=== PATIENT | female | born 1955 | race Caucasian/White ===

== ENCOUNTER 2017-04-06 03:44 | Emergency (ER) | payer BC ==
--- NOTE | 2017-04-06 04:06 | EDM.PDOC ---
ED HPI GENERAL MEDICAL PROBLEM - General Chief Complaint: ENT Problem Stated Complaint: POSSIBLE LEFT EAR INFECTION Time Seen by Provider: 04/06/17 04:02 - History of Present Illness INITIAL COMMENTS - FREE TEXT/NARRATIVE: HISTORY AND PHYSICAL: History of present illness: Patient 7-year-old female presents with concern of left ear pain has been 1 day she was recently started on Z-Yosvany she is also on Bactrim 3 times weekly and this all relates to bone marrow transplant and prophylaxis. She denies fever chills nausea vomiting or other complaints Review of systems: As per history of present illness and below otherwise all systems reviewed and negative. Past medical history: As per history of present illness and as reviewed below otherwise noncontributory. Surgical history: As per history of present illness and as reviewed below otherwise noncontributory. Social history: No reported history of drug or alcohol abuse. Family history: As per history of present illness and as reviewed below otherwise noncontributory. Physical exam: HEENT: Atraumatic, normocephalic, pupils reactive, negative for conjunctival pallor or scleral icterus, mucous membranes moist, throat clear, neck supple, nontender, trachea midline. Left TM is mildly injected with an absent light reflex Lungs: Clear to auscultation, breath sounds equal bilaterally, chest nontender. Heart: S1S2, regular, negative for clicks, rubs, or JVD. Abdomen: Soft, nondistended, nontender. Negative for masses or hepatosplenomegaly. Negative for costovertebral tenderness. Pelvis: Stable nontender. Genitourinary: Deferred. Rectal: Deferred. Extremities: Atraumatic, negative for cords or calf pain. Neurovascular unremarkable. Neuro: Awake, alert, oriented. Cranial nerves II through XII unremarkable. Cerebellum unremarkable. Motor and sensory unremarkable throughout. Exam nonfocal. Diagnostics: None Therapeutics: None Impression: #1 left otalgia/left otitis media Definitive disposition and diagnosis as appropriate pending reevaluation and review of above. left ear Pain Score (Numeric/FACES): 8 - Related Data Allergies Allergy/AdvReac Type Severity Reaction Status Date / Time Penicillins Allergy Hives Verified 04/06/17 03:54 Home Meds: Home Meds DULoxetine [Cymbalta] 60 mg PO DAILY 02/24/16 [History] Ergocalciferol (Vitamin D2) [Vitamin D2] 50,000 units PO WEEKLY 02/24/16 [ History] Folic Acid 1 mg PO DAILY 02/24/16 [History] LORazepam [Ativan] 0.5 tab PO Q6HR 02/24/16 [History] Levothyroxine Sodium [Levo-T] 25 mcg PO DAILY 02/24/16 [History] Lisinopril 20 mg PO DAILY 02/24/16 [History] Metoprolol Tartrate 12.5 mg PO BID 02/24/16 [History] Milnacipran HCl [Savella] 50 mg PO DAILY 02/24/16 [History] Omeprazole 20 mg PO DAILY 02/24/16 [History] Ondansetron [Zofran ODT] 4 mg PO Q6H 02/24/16 [History] Prochlorperazine [Compazine] 10 mg PO Q6HR PRN 02/24/16 [History] Tacrolimus [Prograf] 1 mg PO ASDIRECTED 02/24/16 [History] Past Medical History Other HEENT History: using eye glasses Cardiovascular History: Reports: High Cholesterol, Hypertension Respiratory History: Reports: None Gastrointestinal History: Reports: None Other Gastrointestinal History: gallbladder removed in 1999 Genitourinary History: Reports: None ANIMAL KILLER History: Reports: Other OB/BYN History: hysterectomy Musculoskeletal History: Reports: None Neurological History: Reports: None Psychiatric History: Reports: None Endocrine/Metabolic History: Reports: Hypothyroidism Hematologic History: Reports: None Immunologic History: Reports: None Oncologic (Cancer) History: Reports: Leukemia Dermatologic History: Reports: None - Infectious Disease History Infectious Disease History: Reports: Chicken Pox, Measles, Mumps - Past Surgical History Head Surgeries/Procedures: Reports: None GI Surgical History: Reports: Cholecystectomy Other Oncologic Surgeries/Procedures: 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 ED EXAM, GENERAL - Physical Exam Exam: See Below (See dictation) Course - Vital Signs Text/Narrative:: Patient declined any analgesia or a further antibiotics in light of her current situation she'll contact her private doctor I discussed with her that the Z-Yosvany is reasonable empiric therapy at this point pending discussion with her doctor Last Recorded V/S: Last Vital Signs Temp 36.2 C 04/06/17 03:54 Pulse 102 H 04/06/17 03:54 Resp 18 04/06/17 03:54 BP 141/103 H 04/06/17 03:54 Pulse Ox 98 04/06/17 03:54 Departure - Departure Time of Disposition: 04:05 Disposition: Home, Self-Care 01 Condition: Good Clinical Impression: Otitis media - Discharge Information Referrals: Gino Desir MD [Primary Care Provider] - Additional Instructions: The following information is given to patients seen in the emergency department who are being discharged to home. This information is to outline your options for follow-up care. We provide all patients seen in our emergency department with a follow-up referral. The need for follow-up, as well as the timing and circumstances, are variable depending upon the specifics of your emergency department visit. If you don't have a primary care physician on staff, we will provide you with a referral. We always advise you to contact your personal physician following an emergency department visit to inform them of the circumstance of the visit and for follow-up with them and/or the need for any referrals to a consulting specialist. The emergency department will also refer you to a specialist when appropriate. This referral assures that you have the opportunity for followup care with a specialist. All of these measure are taken in an effort to provide you with optimal care, which includes your followup. Under all circumstances we always encourage you to contact your private physician who remains a resource for coordinating your care. When calling for followup care, please make the office aware that this follow-up is from your recent emergency room visit. If for any reason you are refused follow-up, please contact the [facility] emergency department at and asked to speak to the emergency department charge nurse Follow-up primary medical doctor 1-2 days return as needed as discussed continue current medications as prescribed[]
[2017-04-06 04:19] VITALS: BP 122/93
== END 2017-04-06 04:15 | disposition home or self-care (01) ==
LOC: MW.ED 03:44
DX: H66.92 Otitis media, unspecified, left ear (principal); I10 Essential (primary) hypertension; Z88.0 Allergy status to penicillin; Z79.899 Other long term (current) drug therapy
CPT/HCPCS: 99282

== ENCOUNTER 2017-12-31 08:06 | Day surgery (SDC) | payer BC ==
[~2017-12-31 08:06] MED LIST: Ciprofloxacin in D5W 400 MG in Premix Bag 1 BAG IV SCH; Lactated Ringers 1,000 ML IV SCH; Sodium Chloride 0.9% 10 ML Syringe FLUSH PRN; Sodium Chloride 0.9% 2.5 ML Syringe FLUSH PRN
[2017-12-31] MEDS ORDERED: Propofol 200 MG/20 ML SDV ONE (08:40)
[2017-12-31] MEDS ORDERED: Lidocaine 2% 5 ML SDV ONE (08:40)
[2017-12-31] MEDS ORDERED: Midazolam 1 MG/ML 2 ML SDV ONE (08:40)
[2017-12-31] MEDS ORDERED: fentaNYL 250 MCG/5 ML SDV ONE (08:40)
[2017-12-31] MEDS ORDERED: Ondansetron 4 MG/2 ML SDV ONE (08:40)
[2017-12-31] MEDS ORDERED: Desflurane 240 ML Bottle ONE (09:29)
[2017-12-31] MEDS ORDERED: Iopamidol 408 MG/ML 50 ML SDV ONE (09:46)
--- NOTE | 2017-12-31 09:48 | PCM.PREANE ---
Preanesthetic Assessment - Anesthesia/Transfusion/Family Hx Anesthesia History: Prior Anesthesia Without Reaction Transfusion History: Prior Transfusion Without Reaction Intubation History: Unknown - Review of Systems General: No Symptoms Cardiovascular: Other (HTN) Gastrointestinal: Other (GERD) Neurological: No Symptoms Other: Reports: Thyroid Problems (hypothyroid) - Physical Assessment NPO Status Date: 12/30/17 NPO Status Time: 22:00 O2 Sat by Pulse Oximetry: 96 Respiratory Rate: 16 Vital Signs: Last Vital Signs Temp 97.7 F 12/31/17 08:58 Pulse 71 12/31/17 08:58 Resp 16 12/31/17 08:58 BP 116/77 12/31/17 08:58 Pulse Ox 96 12/31/17 08:58 Height: 5 ft 9 in Weight: 178 lb Airway Class: Mallampati = 1 Dentition: Reports: Normal Dentition Thyro-Mental Finger Breadths: 3 Mouth Opening Finger Breadths: 3 ROM/Head Extension: Full Lungs: Clear to Auscultation, Normal Respiratory Effort Cardiovascular: Regular Rate, Regular Rhythm, No Murmurs - Allergies Allergies/Adverse Reactions: Allergies Allergy/AdvReac Type Severity Reaction Status Date / Time levofloxacin [From Levaquin] Allergy Cannot Verified 12/30/17 15:09 Remember Penicillins Allergy Hives Verified 12/30/17 15:08 vancomycin Allergy Hives Verified 12/31/17 09:10 - Blood Blood Available: No Product(s) Available: None - Anesthesia Plan Pre-Op Medication Ordered: Anxiolytic (ativan) - Acknowledgements Anesthesia Type Planned: General Anesthesia (LMA) Pt an Appropriate Candidate for the Planned Anesthesia: Yes Alternatives and Risks of Anesthesia Discussed w Pt/Guardian: Yes Pt/Guardian Understands and Agrees with Anesthesia Plan: Yes PreAnesthesia Questionnaire HEENT History: Reports: Other (See Below) Other HEENT History: using eye glasses Cardiovascular History: Reports: High Cholesterol, Hypertension Other Cardiovascular History: HTN, high cholesterol in the past Respiratory History: Reports: None Gastrointestinal History: Reports: Colon Polyp, Diverticulosis Genitourinary History: Reports: UTI, Recurrent PHYSICAL THERAPY RESIDENT History: Reports: Other OB/BYN History: hysterectomy Musculoskeletal History: Reports: Fibromyalgia Other Musculoskeletal History: fibromyalgia prior to stem cell transplant Neurological History: Reports: None Psychiatric History: Reports: Anxiety, Depression Endocrine/Metabolic History: Reports: Hypothyroidism Hematologic History: Reports: Blood Transfusion(s), Other (See Below) Other Hematologic History: 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 Immunologic History: Reports: None Oncologic (Cancer) History: Reports: Leukemia Other Oncologic History: hx stem cell transplant Jun, 2014 Dermatologic History: Reports: None - Infectious Disease History Infectious Disease History: Reports: Chicken Pox, Measles, Mumps - Past Surgical History Head Surgeries/Procedures: Reports: None GI Surgical History: Reports: Cholecystectomy, Colonoscopy Female Surgical History: Reports: Hysterectomy - SUBSTANCE USE Smoking Status *Q: Former Smoker Recreational Drug Use History: No - HOME MEDS Home Medications: Home Meds DULoxetine [Cymbalta] 60 mg PO DAILY 02/24/16 [History] LORazepam [Ativan] 0.5 tab PO Q6HR 02/24/16 [History] Levothyroxine Sodium [Levo-T] 25 mcg PO DAILY 02/24/16 [History] Milnacipran HCl [Savella] 50 mg PO DAILY 02/24/16 [History] Acyclovir 800 mg PO BID 12/30/17 [History] - CURRENT (IN HOUSE) MEDS Current Meds: Current Medications Ciprofloxacin/Dextrose 400 mg/ (Premix) 200 mls @ 200 mls/hr IV ONCALL [facility] Last Admin: 12/31/17 08:35 Dose: 200 mls/hr Lactated Ringer's (Ringers, Lactated) 1,000 mls @ 100 mls/hr IV ASDIRECTED [facility] Last Admin: 12/31/17 08:30 Dose: 100 mls/hr Sodium Chloride (Saline Flush) 10 ml FLUSH ASDIRECTED PRN PRN Reason: Keep Vein Open Sodium Chloride (Saline Flush) 2.5 ml FLUSH ASDIRECTED PRN PRN Reason: Keep Vein Open Discontinued Medications Desflurane (Suprane) Confirm Administered Dose 240 ml .ROUTE .STK-MED ONE Stop: 12/31/17 09:30 Fentanyl (Sublimaze) Confirm Administered Dose 250 mcg .ROUTE .STK-MED ONE Stop: 12/31/17 08:41 Lidocaine (Xylocaine-Mpf 2%) Confirm Administered Dose 5 ml .ROUTE .STK-MED ONE Stop: 12/31/17 08:41 Midazolam HCl (Versed 1 Mg/Ml) Confirm Administered Dose 2 mg .ROUTE .STK-MED ONE Stop: 12/31/17 08:41 Ondansetron HCl (Zofran) Confirm Administered Dose 4 mg .ROUTE .STK-MED ONE Stop: 12/31/17 08:41 Propofol (Diprivan 20 Ml) Confirm Administered Dose 200 mg .ROUTE .STK-MED ONE Stop: 12/31/17 08:41
--- NOTE | 2017-12-31 11:01 | PCM.POSTAN ---
POST ANESTHESIA ASSESSMENT - MENTAL STATUS Mental Status: Alert, Oriented - RESPIRATORY Respiratory Status: Respiratory Rate WNL, Airway Patent, O2 Saturation Stable - CARDIOVASCULAR CV Status: Pulse Rate WNL, Blood Pressure Stable - GASTROINTESTINAL GI Status: No Symptoms - POST OP HYDRATION Hydration Status: Adequate & Stable
--- NOTE | 2017-12-31 12:20 | OR ---
SURGEON: Kelby Chavarria M.D. DATE OF PROCEDURE: 12/31/2017 PREOPERATIVE DIAGNOSIS: Urethral stricture. POSTOPERATIVE DIAGNOSIS: Urethral stricture. OPERATION: Urethral dilatation and cystoscopy. FINDINGS: Normal cystoscopy. DESCRIPTION OF THE PROCEDURE: The patient was given general anesthesia, she was placed in dorsal lithotomy position, prepped and draped in sterile drapes. The rigid ureteroscope was advanced in the urethra without difficulty all the way into the bladder. A guidewire was then advanced through that. The rigid ureteroscope was removed and the UroMax II balloon dilator was advanced over the guidewire in the urethra, was inflated to approximately 15-Greenlandic. With that done, that was then taken out, so was the guidewire. Urethroscopy was done. The urethra was dilated properly. Further dilatation was done using 16, 18, 20, 22, and 24- Green[place]ic straight sounds. Cystoscopy was done and that was entirely normal. With that done, the procedure was terminated. The patient was sent to recovery room in good condition. JULIETA / ELIZA /[id number]
--- NOTE | 2017-12-31 12:59 | PCM48HPAN ---
Post Anesthesia Note - EVALUATION WITHIN 48HRS OF ANESTHETIC Vital Signs in Normal Range: Yes Patient Participated in Evaluation: Yes Respiratory Function Stable: Yes Airway Patent: Yes Cardiovascular Function Stable: Yes Hydration Status Stable: Yes Pain Control Satisfactory: Yes Nausea and Vomiting Control Satisfactory: Yes Mental Status Recovered: Yes Resp Rate: 10
[2017-12-31 13:17] VITALS: BP 116/78
== END 2017-12-31 12:38 | disposition home or self-care (01) ==
LOC: MW.SDS 08:06
PROVIDERS: ATTEND Urology
DX: N35.9 Urethral stricture, unspecified (principal); K64.9 Unspecified hemorrhoids; E78.00 Pure hypercholesterolemia, unspecified; Z88.0 Allergy status to penicillin; Z79.899 Other long term (current) drug therapy; Z87.891 Personal history of nicotine dependence
CPT/HCPCS: 52281; J0744; J2250; J2405; J2704; J3010; J7120; Q9966

== ENCOUNTER 2018-01-19 13:36 | Observation (INO) | payer BC ==
[2018-01-19] MEDS ORDERED: Albuterol/Ipratropium 3.0-0.5 MG/3 ML Neb Soln NEB ONE (13:47)
[2018-01-19] MEDS ORDERED: methylPREDNISolone Sodium Succinate 125 MG/2 ML SDV IVPUSH ONE (13:47)
--- NOTE | 2018-01-19 13:47 | EDM.PDOC ---
ED HPI GENERAL MEDICAL PROBLEM - General Stated Complaint: SOB Time Seen by Provider: 01/19/18 13:46 Source of Information: Reports: Patient - History of Present Illness INITIAL COMMENTS - FREE TEXT/NARRATIVE: HISTORY AND PHYSICAL: History of present illness: []Patient with lymphoma and stem cell transplant presents with cough shortness of breath and night sweats She has been getting generally weak and not taking in fluids over the last week , otherwise no fever vomiting chills no chest pain headache dizziness palpitation no bowel or urine symptoms Review of systems: As per history of present illness and below otherwise all systems reviewed and negative. Past medical history: As per history of present illness and as reviewed below otherwise noncontributory. Surgical history: As per history of present illness and as reviewed below otherwise noncontributory. Social history: No reported history of drug or alcohol abuse. Family history: As per history of present illness and as reviewed below otherwise noncontributory. Physical exam: HEENT: Atraumatic, normocephalic, pupils reactive, negative for conjunctival pallor or scleral icterus, mucous membranes moist, throat clear, neck supple, nontender, trachea midline. Lungs: Clear to auscultation, breath sounds equal bilaterally, chest nontender. Heart: S1S2, regular, negative for clicks, rubs, or JVD. Abdomen: Soft, nondistended, nontender. Negative for masses or hepatosplenomegaly. Negative for costovertebral tenderness. Pelvis: Stable nontender. Genitourinary: Deferred. Rectal: Deferred. Extremities: Atraumatic, negative for cords or calf pain. Neurovascular unremarkable. Neuro: Awake, alert, oriented. Cranial nerves II through XII unremarkable. Cerebellum unremarkable. Motor and sensory unremarkable throughout. Exam nonfocal. Skin mild tenting in the dorsum of hands Diagnostics: [CBC CMP UA troponin EKG Chest 1 view ] Therapeutics: [ normal saline 1 25 mL per hour DuoNeb impression: [ short of breath ] Nonspecific opacities on chest x-ray Dehydration Sinus tachycardia Renal insufficiency Definitive disposition and diagnosis as appropriate pending reevaluation and review of above. - Related Data Allergies Allergy/AdvReac Type Severity Reaction Status Date / Time levofloxacin [From Levaquin] Allergy Cannot Verified 01/19/18 13:54 Remember Penicillins Allergy Hives Verified 01/19/18 13:54 vancomycin Allergy Hives Verified 01/19/18 13:54 Home Meds: Home Meds DULoxetine [Cymbalta] 60 mg PO DAILY 02/24/16 [History] LORazepam [Ativan] 0.5 tab PO Q6HR 02/24/16 [History] Levothyroxine Sodium [Levo-T] 25 mcg PO DAILY 02/24/16 [History] Milnacipran HCl [Savella] 50 mg PO DAILY 02/24/16 [History] Acyclovir 800 mg PO BID 12/30/17 [History] Past Medical History HEENT History: Reports: Other (See Below) Other HEENT History: using eye glasses Cardiovascular History: Reports: High Cholesterol, Hypertension Other Cardiovascular History: HTN, high cholesterol in the past Respiratory History: Reports: None Gastrointestinal History: Reports: Colon Polyp, Diverticulosis Genitourinary History: Reports: UTI, Recurrent UI UX DEVELOPER History: Reports: Other UI UX DEVELOPER History: hysterectomy Musculoskeletal History: Reports: Fibromyalgia Other Musculoskeletal History: fibromyalgia prior to stem cell transplant Neurological History: Reports: None Psychiatric History: Reports: Anxiety, Depression Endocrine/Metabolic History: Reports: Hypothyroidism Hematologic History: Reports: Blood Transfusion(s), Other (See Below) Other Hematologic History: 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 Immunologic History: Reports: None Oncologic (Cancer) History: Reports: Leukemia Other Oncologic History: hx stem cell transplant Jun, 2014 Dermatologic History: Reports: None - Infectious Disease History Infectious Disease History: Reports: Chicken Pox, Measles, Mumps - Past Surgical History Head Surgeries/Procedures: Reports: None GI Surgical History: Reports: Cholecystectomy, Colonoscopy Female Surgical History: Reports: Hysterectomy Social & Family History - Family History Family Medical History: Noncontributory HEENT: Reports: Other (See Below) Other HEENT Family History: cancer - Caffeine Use Caffeine Use: Reports: Coffee ED ROS GENERAL - Review of Systems Review Of Systems: See Below ED EXAM, GENERAL - Physical Exam Exam: See Below Course - Vital Signs Last Recorded V/S: Last Vital Signs Temp 98.6 F 01/19/18 13:46 Pulse 96 01/19/18 13:46 Resp 18 01/19/18 13:46 BP 121/91 H 01/19/18 13:46 Pulse Ox 96 01/19/18 13:46 - Orders/Labs/Meds Orders: Active Orders 24 hr Category Date Time Status EKG Documentation Completion [RC] STAT Care 01/19/18 14:27 Active RT Aerosol Therapy [RC] ASDIRECTED Care 01/19/18 13:47 Active Chest 1V Frontal [CR] Stat Exams 01/19/18 13:44 Taken UA W/MICROSCOPIC [URIN] Stat Lab 01/19/18 13:44 Ordered Sodium Chloride 0.9% [Normal Saline] 1,000 ml Med 01/19/18 14:45 Active IV STAT Sodium Chloride 0.9% [Normal Saline] 500 ml Med 01/19/18 14:00 Active IV STAT Medication Orders Sodium Chloride (Normal Saline) 500 mls @ 999 mls/hr IV STAT HUY Last Admin: 01/19/18 14:02 Dose: 999 mls/hr Sodium Chloride (Normal Saline) 1,000 mls @ 125 mls/hr IV STAT HUY Labs: Laboratory Tests 01/19/18 01/19/18 01/19/18 Range/Units 14:02 14:02 14:02 WBC 10.07 (4.0-11.0) K/uL RBC 3.81 L (4.30-5.90) M/uL Hgb 12.0 (12.0-16.0) g/dL Hct 35.5 L (36.0-46.0) % MCV 93.2 (80.0-98.0) fL MCH 31.5 (27.0-32.0) pg MCHC 33.8 (31.0-37.0) g/dL RDW Std Deviation 41.6 (28.0-62.0) fl RDW Coeff of Jose 13 (11.0-15.0) % Plt Count 213 (150-400) K/uL MPV 10.20 (7.40-12.00) fL Neut % (Auto) 76.9 (48.0-80.0) % Lymph % (Auto) 14.4 L (16.0-40.0) % Gosper % (Auto) 7.0 (0.0-15.0) % Eos % (Auto) 1.5 (0.0-7.0) % Baso % (Auto) 0.2 (0.0-1.5) % Neut # (Auto) 7.8 H (1.4-5.7) K/uL Lymph # (Auto) 1.5 (0.6-2.4) K/uL Gosper # (Auto) 0.7 (0.0-0.8) K/uL Eos # (Auto) 0.2 (0.0-0.7) K/uL Baso # (Auto) 0.0 (0.0-0.1) K/uL Nucleated RBC % 0.0 /100WBC Nucleated RBCs # 0 K/uL Sodium 135 L (136-145) mmol/L Potassium 4.2 (3.5-5.1) mmol/L Chloride 99 (98-107) mmol/L Carbon Dioxide 27.1 (21.0-32.0) mmol/L BUN 19 H (7.0-18.0) mg/dL Creatinine 1.4 H (0.6-1.0) mg/dL Est Cr Clr Drug Dosing 44.10 mL/min Estimated GFR (MDRD) 38.2 ml/min Glucose 139 H (74-106) mg/dL Calcium 9.2 (8.5-10.1) mg/dL Total Bilirubin 0.6 (0.2-1.0) mg/dL AST 29 (15-37) IU/L ALT 50 (14-63) IU/L Alkaline Phosphatase 72 (46-116) U/L Troponin I < 0.050 (0.000-0.056) ng/mL B-Natriuretic Peptide 53 (<100) PG/ML Total Protein 7.8 (6.4-8.2) g/dL Albumin 3.0 L (3.4-5.0) g/dL Globulin 4.8 H (2.0-3.5) g/dL Albumin/Globulin Ratio 0.6 L (1.3-2.8) Meds: Medications Generic Name Dose Route Start Last Admin Trade Name Freq PRN Reason Stop Dose Admin Sodium Chloride 500 mls @ 999 mls/hr 01/19/18 14:00 01/19/18 14:02 Normal Saline IV 999 mls/hr STAT HUY Administration Sodium Chloride 1,000 mls @ 125 mls/hr 01/19/18 14:45 Normal Saline IV STAT HUY Discontinued Medications Generic Name Dose Route Start Last Admin Trade Name Freq PRN Reason Stop Dose Admin Albuterol/Ipratropium 3 ml 01/19/18 13:47 01/19/18 13:57 Duoneb 3.0-0.5 Mg/3 Ml NEB 01/19/18 13:48 3 ml ONETIME ONE Administration Methylprednisolone Sodium Succinate 125 mg 01/19/18 13:47 01/19/18 14:02 Solu-Medrol IVPUSH 01/19/18 13:48 125 mg ONETIME ONE Administration Departure - Departure Time of Disposition: 14:47 Disposition: Refer to Observation Condition: Fair Clinical Impression: Dehydration, Persistent cough, Opacity noted on imaging study - Discharge Information Referrals: Parker Oswald MD [Primary Care Provider] - - My Orders Last 24 Hours: My Active Orders 01/19/18 13:44 Chest 1V Frontal [CR] Stat UA W/MICROSCOPIC [URIN] Stat 01/19/18 13:47 RT Aerosol Therapy [RC] ASDIRECTED 01/19/18 14:00 Sodium Chloride 0.9% [Normal Saline] 500 ml IV STAT 01/19/18 14:27 EKG Documentation Completion [RC] STAT 01/19/18 14:45 Sodium Chloride 0.9% [Normal Saline] 1,000 ml IV STAT - Assessment/Plan Last 24 Hours: My Active Orders 01/19/18 13:44 Chest 1V Frontal [CR] Stat UA W/MICROSCOPIC [URIN] Stat 01/19/18 13:47 RT Aerosol Therapy [RC] ASDIRECTED 01/19/18 14:00 Sodium Chloride 0.9% [Normal Saline] 500 ml IV STAT 01/19/18 14:27 EKG Documentation Completion [RC] STAT 01/19/18 14:45 Sodium Chloride 0.9% [Normal Saline] 1,000 ml IV STAT
[2018-01-19] MEDS ORDERED: Sodium Chloride 0.9% 500 ML IV SCH (14:00)
[2018-01-19 14:29] LABS: CHLORIDE,CL 99 mmol/L (98-107); SODIUM,NA 135 mmol/L (136-145)
[2018-01-19] MEDS: Sodium Chloride 0.9% 1,000 ML IV SCH ×2 (14:55→22:51)
[2018-01-19] MEDS ORDERED: Albuterol/Ipratropium 3.0-0.5 MG/3 ML Neb Soln NEB PRN (15:36)
[2018-01-19] MEDS ORDERED: Morphine 2 MG/ML Syringe IVPUSH PRN (15:36)
[2018-01-19] MEDS ORDERED: Ondansetron 4 MG/2 ML SDV IVPUSH PRN (15:36)
[2018-01-19] MEDS ORDERED: Acetaminophen 325 MG Tab PO PRN (15:36)
[2018-01-19] MEDS ORDERED: Enoxaparin 40 MG/0.4 ML Syringe SUBCUT SCH (15:45)
[2018-01-19] MEDS ORDERED: cefTRIAXone 1 GM in Sodium Chloride 0.9% 50 ML IV SCH (16:15)
--- NOTE | 2018-01-19 16:38 | PCM.HP ---
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 Patient was admitted secondary to what was initially stated that shortness of breath however the patient states that she is not actually short of breath but states that whenever she tries to take a deep breath in it results in her having a cough and as such she has to take very short breaths. The patient also has a jerky movement of her upper torso when she takes a deep breath it just prior to the cough starting. A chest x-ray done showed a nonspecific peripheral reticular nodular opacity in the lungs. Patient also was asked in regards to urinary tract type infection as her UA did look like a possible infection, patient states that she has been having recurrent urinary tract infections over the past couple of months, and she did notice last night that she had a malodorous odor of her urine. Patient also does appear to be dehydrated with a mildly elevated creatinine level at the present moment. - Related Data Allergies/Adverse Reactions: Allergies Allergy/AdvReac Type Severity Reaction Status Date / Time levofloxacin [From Levaquin] Allergy Cannot Verified 01/19/18 13:54 Remember Penicillins Allergy Hives Verified 01/19/18 13:54 vancomycin Allergy Hives Verified 01/19/18 13:54 Home Medications: Home Meds DULoxetine [Cymbalta] 60 mg PO DAILY 02/24/16 [History] LORazepam [Ativan] 0.5 tab PO Q6HR 02/24/16 [History] Levothyroxine Sodium [Levo-T] 25 mcg PO DAILY 02/24/16 [History] Milnacipran HCl [Savella] 50 mg PO DAILY 02/24/16 [History] Acyclovir 800 mg PO BID 12/30/17 [History] Past Medical History HEENT History: Reports: Other (See Below) Other HEENT History: using eye glasses Cardiovascular History: Reports: High Cholesterol, Hypertension Other Cardiovascular History: HTN, high cholesterol in the past Respiratory History: Reports: None Gastrointestinal History: Reports: Colon Polyp, Diverticulosis Genitourinary History: Reports: UTI, Recurrent 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 PHYSICAL History: Reports: Other OB/BYN History: hysterectomy Musculoskeletal History: Reports: Fibromyalgia Other Musculoskeletal History: fibromyalgia prior to stem cell transplant Neurological History: Reports: None Psychiatric History: Reports: Anxiety, Depression Endocrine/Metabolic History: Reports: Hypothyroidism Hematologic History: Reports: Blood Transfusion(s), Other (See Below) Other Hematologic History: 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 Immunologic History: Reports: None Other Immunologic History: Stem cell transplant, currently in remission leukemia Oncologic (Cancer) History: Reports: Leukemia Other Oncologic History: hx stem cell transplant Jun, 2014 Dermatologic History: Reports: None - Infectious Disease History Infectious Disease History: Reports: Chicken Pox, Measles, Mumps - Past Surgical History Head Surgeries/Procedures: Reports: None GI Surgical History: Reports: Cholecystectomy, Colonoscopy Female Surgical History: Reports: Hysterectomy Social & Family History - Family History Family Medical History: Noncontributory HEENT: Reports: Other (See Below) Other HEENT Family History: cancer - Tobacco Use Smoking Status *Q: Former Smoker Years of Tobacco use: 4 Used Tobacco, but Quit: Yes Month/Year Tobacco Last Used: 4 years 1 months - Caffeine Use Caffeine Use: Reports: Coffee - Recreational Drug Use Recreational Drug Use: No H&P Review of Systems - Review of Systems: Review Of Systems: ROS reveals no pertinent complaints other than HPI. Exam - Exam Exam: See Below - Vital Signs Vital Signs: Last Vital Signs Temp 36.6 C 01/19/18 15:36 Pulse 115 H 01/19/18 15:36 Resp 18 01/19/18 15:36 BP 153/91 H 01/19/18 15:36 Pulse Ox 95 01/19/18 15:36 Weight: 78.063 kg - Exam General: Alert, Oriented, Cooperative HEENT: Conjunctiva Clear Neck: Supple, Trachea Midline Lungs: Clear to Auscultation, Normal Respiratory Effort, Other (Patient was asked to take a deep inspiratory breath, she began to cough and had this jerking movement of the upper torso just prior to the cough) Cardiovascular: Regular Rate, Regular Rhythm GI/Abdominal Exam: Normal Bowel Sounds Extremities: Normal Inspection, Normal Range of Motion - Patient Data Lab Results Last 24 hrs: Laboratory Results - last 24 hr 01/19/18 01/19/18 01/19/18 Range/Units 14:02 14:02 14:02 WBC 10.07 (4.0-11.0) K/uL RBC 3.81 L (4.30-5.90) M/uL Hgb 12.0 (12.0-16.0) g/dL Hct 35.5 L (36.0-46.0) % MCV 93.2 (80.0-98.0) fL MCH 31.5 (27.0-32.0) pg MCHC 33.8 (31.0-37.0) g/dL RDW Std Deviation 41.6 (28.0-62.0) fl RDW Coeff of Jose 13 (11.0-15.0) % Plt Count 213 (150-400) K/uL MPV 10.20 (7.40-12.00) fL Neut % (Auto) 76.9 (48.0-80.0) % Lymph % (Auto) 14.4 L (16.0-40.0) % [place] % (Auto) 7.0 (0.0-15.0) % Eos % (Auto) 1.5 (0.0-7.0) % Baso % (Auto) 0.2 (0.0-1.5) % Neut # (Auto) 7.8 H (1.4-5.7) K/uL Lymph # (Auto) 1.5 (0.6-2.4) K/uL [place] # (Auto) 0.7 (0.0-0.8) K/uL Eos # (Auto) 0.2 (0.0-0.7) K/uL Baso # (Auto) 0.0 (0.0-0.1) K/uL Nucleated RBC % 0.0 /100WBC Nucleated RBCs # 0 K/uL Sodium 135 L (136-145) mmol/L Potassium 4.2 (3.5-5.1) mmol/L Chloride 99 (98-107) mmol/L Carbon Dioxide 27.1 (21.0-32.0) mmol/L BUN 19 H (7.0-18.0) mg/dL Creatinine 1.4 H (0.6-1.0) mg/dL Est Cr Clr Drug Dosing 44.10 mL/min Estimated GFR (MDRD) 38.2 ml/min Glucose 139 H (74-106) mg/dL Calcium 9.2 (8.5-10.1) mg/dL Total Bilirubin 0.6 (0.2-1.0) mg/dL AST 29 (15-37) IU/L ALT 50 (14-63) IU/L Alkaline Phosphatase 72 (46-116) U/L Troponin I < 0.050 (0.000-0.056) ng/mL B-Natriuretic Peptide 53 (<100) PG/ML Total Protein 7.8 (6.4-8.2) g/dL Albumin 3.0 L (3.4-5.0) g/dL Globulin 4.8 H (2.0-3.5) g/dL Albumin/Globulin Ratio 0.6 L (1.3-2.8) Urine Color Urine Appearance Urine pH (5.0-8.0) Ur Specific [place] (1.001-1.035) Urine Protein (NEGATIVE) mg/dL Urine Glucose (UA) (NEGATIVE) mg/dL Urine Ketones (NEGATIVE) mg/dL Urine Occult Blood (NEGATIVE) Urine Nitrite (NEGATIVE) Urine Bilirubin (NEGATIVE) Urine Urobilinogen (<2.0) EU/dL Ur Leukocyte Esterase (NEGATIVE) Urine RBC (0-2/HPF) Urine WBC (0-5/HPF) Ur Epithelial Cells (NONE-FEW) Urine Bacteria (NEGATIVE) 01/19/18 Range/Units 15:00 WBC (4.0-11.0) K/uL RBC (4.30-5.90) M/uL Hgb (12.0-16.0) g/dL Hct (36.0-46.0) % MCV (80.0-98.0) fL MCH (27.0-32.0) pg MCHC (31.0-37.0) g/dL RDW Std Deviation (28.0-62.0) fl RDW Coeff of Jose (11.0-15.0) % Plt Count (150-400) K/uL MPV (7.40-12.00) fL Neut % (Auto) (48.0-80.0) % Lymph % (Auto) (16.0-40.0) % [place] % (Auto) (0.0-15.0) % Eos % (Auto) (0.0-7.0) % Baso % (Auto) (0.0-1.5) % Neut # (Auto) (1.4-5.7) K/uL Lymph # (Auto) (0.6-2.4) K/uL [place] # (Auto) (0.0-0.8) K/uL Eos # (Auto) (0.0-0.7) K/uL Baso # (Auto) (0.0-0.1) K/uL Nucleated RBC % /100WBC Nucleated RBCs # K/uL Sodium (136-145) mmol/L Potassium (3.5-5.1) mmol/L Chloride (98-107) mmol/L Carbon Dioxide (21.0-32.0) mmol/L BUN (7.0-18.0) mg/dL Creatinine (0.6-1.0) mg/dL Est Cr Clr Drug Dosing mL/min Estimated GFR (MDRD) ml/min Glucose (74-106) mg/dL Calcium (8.5-10.1) mg/dL Total Bilirubin (0.2-1.0) mg/dL AST (15-37) IU/L ALT (14-63) IU/L Alkaline Phosphatase (46-116) U/L Troponin I (0.000-0.056) ng/mL B-Natriuretic Peptide (<100) PG/ML Total Protein (6.4-8.2) g/dL Albumin (3.4-5.0) g/dL Globulin (2.0-3.5) g/dL Albumin/Globulin Ratio (1.3-2.8) Urine Color YELLOW Urine Appearance CLEAR Urine pH 6.0 (5.0-8.0) Ur Specific [place] <= 1.005 (1.001-1.035) Urine Protein TRACE (NEGATIVE) mg/dL Urine Glucose (UA) NEGATIVE (NEGATIVE) mg/dL Urine Ketones NEGATIVE (NEGATIVE) mg/dL Urine Occult Blood SMALL H (NEGATIVE) Urine Nitrite NEGATIVE (NEGATIVE) Urine Bilirubin NEGATIVE (NEGATIVE) Urine Urobilinogen 0.2 (<2.0) EU/dL Ur Leukocyte Esterase TRACE (NEGATIVE) Urine RBC 0-2 (0-2/HPF) Urine WBC 0-2 (0-5/HPF) Ur Epithelial Cells FEW (NONE-FEW) Urine Bacteria FEW (NEGATIVE) Result Diagrams: 01/19/18 14:02 01/19/18 14:02 - Problem List (1) Dehydration SNOMED Code(s): 88903414 ICD Code: E86.0 - DEHYDRATION Status: Acute Current Visit: Yes (2) Opacity noted on imaging study SNOMED Code(s): 317814298 ICD Code: R93.8 - ABNORMAL FINDINGS ON DIAGNOSTIC IMAGING OF BODY STRUCTURES Status: Acute Current Visit: Yes (3) Persistent cough SNOMED Code(s): 223977574 ICD Code: R05 - COUGH Status: Acute Current Visit: Yes (4) UTI (urinary tract infection) SNOMED Code(s): 30614366 ICD Code: N39.0 - URINARY TRACT INFECTION, SITE NOT SPECIFIED Status: Acute Current Visit: No Problem List Initiated/Reviewed/Updated: Yes Orders Last 24hrs: Active Orders 24 hr Category Date Time Status Admission Status [Patient Status] [ADT] Stat ADT 01/19/18 14:48 Active EKG Documentation Completion [RC] STAT Care 01/19/18 14:27 Active Intake and Output [RC] QSHIFT Care 01/19/18 15:36 Active Oxygen Therapy [RC] PRN Care 01/19/18 15:36 Active Pulse Oximetry [RC] PRN Care 01/19/18 15:36 Active RT Aerosol Therapy [RC] ASDIRECTED Care 01/19/18 13:47 Active RT Aerosol Therapy [RC] ASDIRECTED Care 01/19/18 15:38 Active VTE/DVT Education [RC] PER UNIT ROUTINE Care 01/19/18 15:36 Active Vital Signs [RC] Q4H Care 01/19/18 15:36 Active PT Evaluation and Treatment [CONS] Routine Cons 01/19/18 15:36 Active Regular Diet [DIET] Diet 01/19/18 Breakfast Active Chest 1V Frontal [CR] Stat Exams 01/19/18 13:44 Taken CULTURE URINE [RM] Routine Lab 01/19/18 15:00 Received UA W/MICROSCOPIC [URIN] Stat Lab 01/19/18 15:00 Ordered Acetaminophen [Tylenol] Med 01/19/18 15:36 Active 650 mg PO Q4H PRN Albuterol/Ipratropium [DuoNeb 3.0-0.5 MG/3 ML] Med 01/19/18 15:36 Active 3 ml NEB Q4HRRT PRN Enoxaparin [Lovenox] Med 01/19/18 15:45 Active 40 mg SUBCUT Q24H Morphine Med 01/19/18 15:36 Active 2 mg IVPUSH Q2H PRN Ondansetron [Zofran] Med 01/19/18 15:36 Active 4 mg IVPUSH Q4H PRN Sodium Chloride 0.9% [Normal Saline] 1,000 ml Med 01/19/18 14:45 Active IV STAT Sodium Chloride 0.9% [Normal Saline] 500 ml Med 01/19/18 14:00 Active IV STAT cefTRIAXone [Rocephin] 1 gm Med 01/19/18 16:15 Active Sodium Chloride 0.9% [Normal Saline] 50 ml IV Q24H Sequential Compression Device [OM.PC] Per Unit Routine Oth 01/19/18 15:36 Ordered Medication Orders Acetaminophen (Tylenol) 650 mg PO Q4H PRN PRN Reason: Pain (Mild 1-3)/fever Albuterol/Ipratropium (Duoneb 3.0-0.5 Mg/3 Ml) 3 ml NEB Q4HRRT PRN PRN Reason: Shortness Of Breath/wheezing Enoxaparin Sodium (Lovenox) 40 mg SUBCUT Q24H [facility] Sodium Chloride (Normal Saline) 500 mls @ 999 mls/hr IV STAT HUY Last Admin: 01/19/18 14:02 Dose: 999 mls/hr Sodium Chloride (Normal Saline) 1,000 mls @ 125 mls/hr IV STAT HUY Last Admin: 01/19/18 14:55 Dose: 125 mls/hr Ceftriaxone Sodium 1 gm/ (Sodium Chloride) 50 mls @ 100 mls/hr IV Q24H [facility] Morphine Sulfate (Morphine) 2 mg IVPUSH Q2H PRN PRN Reason: Pain (severe 7-10) Stop: 01/20/18 15:37 Ondansetron HCl (Zofran) 4 mg IVPUSH Q4H PRN PRN Reason: Nausea/Vomiting Assessment/Plan Comment:: This is a 62-year-old female that is being admitted for shortness of breath/ tachypnea with a chest x-ray finding of a opacity in the peripheral lungs along with dehydration and possible urinary tract infection. - For the opacities seen in the chest x-ray along with the shortness of breath with cough on deep inspiration CT of the chest to be done once patient's creatinine is back to baseline likely in the a.m. -For ERIN in the setting of dehydration IV fluids, ensure patient's creatinine function comes back down to baseline -For possible urinary tract infection Urine culture, given her AML history and recurrent urinary tract infections, and statement of malodorous urine starting yesterday we will go ahead and treat the patient with 1 g ceftriaxone IV and await on the urine culture results.
[2018-01-20] MEDS: Sodium Chloride 0.9% 1,000 ML IV SCH (06:53)
[2018-01-20] MEDS ORDERED: Acyclovir 200 MG Cap PO SCH (09:00)
--- NOTE | 2018-01-20 09:41 | CR ---
EXAM DATE: 01/19/18 PATIENT'S AGE: 62 Patient: JACKY BEST Facility: [place], [place] Site . Site : [id number] Study: XRay Chest [id number] 2:06:22 PM Ordering Physician: Hipolito Art Final Report: INDICATION: SOB. TECHNIQUE: Upright portable AP image of the chest. COMPARISON: None. FINDINGS: Nonspecific peripheral reticulonodular opacity in the lungs. No pleural fusion. Heart size and pulmonary vascular within normal limits. No obvious lymphadenopathy. No significant bony abnormality. IMPRESSION : Nonspecific reticulonodular opacity in the periphery of the lungs. CT suggested. Dictated by Rich Torres MD @ Jan 19 2018 2:25PM (Electronic Signature) Report Signed by Proxy. TATIANA
[2018-01-20 10:18] VITALS: BP 125/78
[2018-01-20] MEDS ORDERED: Iopamidol 612 MG/ML 100 ML Bottle IVPUSH ONE (10:43)
--- NOTE | 2018-01-20 11:15 | CT ---
EXAMINATION: CT chest with contrast HISTORY: Cough, shortness of breath COMPARISON: CT abdomen and pelvis dated 12/04/2017 TECHNIQUE: Axial CT images obtained following the administration of 65 mL of Isovue 300 and right ant ecubital fossa. Coronal and sagittal reconstructions obtained. FINDINGS: Patchy pulmonary opacities are noted most prominent within the peripheral distribution. The nodules regions vary from groundglass to solid-appearing measuring up to 3.1 cm. No pleural effusion or pneumothorax. The heart is normal in size without a pericardial effusion. Thoracic aorta appears normal. The main pulmonary arteries appear patent. No mediastinal, hilar, or axillary lymphadenopathy . Central airways are clear. Visualized images of the upper abdomen appear normal. No suspicious osseous abnormalities identified. IMPRESSION: 1. Multi focal patchy bilateral nodular consolidations and groundglass. Etiology is uncertain in this may represent an atypical infectious process. Differential also includes organizing pneumonia/graft- versus-host disease. Follow-up following treatment may be beneficial to exclude a neoplastic process.
--- NOTE | 2018-01-20 13:24 | PCM.DCSUM1 ---
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 Patient presented with shortness of breath and cough. CXR showed patchy infiltrates. UA showed possible urinary tract infection for which she has a history of recurrent UTI and has recenlty been on Ciprofloxacin. She was monitored overnight and hydrated with IV fluids. CT scan of chest showed patchy nodular infiltrates. She was given IV Rocephin on admission for UTI. She was discharged on Keflex and azithromycin for treatment of possible pneumonia, UTI or atypical infection. She is to follow up with [facility] next week regarding CT scan findings. - Discharge Plan Prescriptions/Med Rec: RX: Azithromycin [Zithromax] 250 mg PO DAILY #6 tab Cephalexin [Keflex] 500 mg PO Q12H #8 capsule Home Medications: Home Meds RX: DULoxetine [Cymbalta] 60 mg PO DAILY 02/24/16 [History] RX: LORazepam [Ativan] 0.5 tab PO Q6HR 02/24/16 [History] RX: Levothyroxine Sodium [Levo-T] 25 mcg PO DAILY 02/24/16 [History] RX: Milnacipran HCl [Savella] 50 mg PO DAILY 02/24/16 [History] RX: Acyclovir 800 mg PO BID 12/30/17 [History] Cephalexin [Keflex] 500 mg PO Q12H #8 capsule 01/20/18 [Rx] RX: Azithromycin [Zithromax] 250 mg PO DAILY #6 tab 01/20/18 [Rx] Patient Handouts: Urinary Tract Infection, Adult, [id number], Dehydration, Adult, [id number], Azithromycin tablets, Cephalexin tablets or capsules Referrals: Parker Oswald MD [Primary Care Provider] - 01/29/18 2:15 pm - Patient Data Vitals - Most Recent: Last Vital Signs Temp 36.2 C 01/20/18 08:00 Pulse 68 01/20/18 08:00 Resp 19 01/20/18 08:00 BP 125/78 01/20/18 08:00 Pulse Ox 96 01/20/18 08:00 Weight - Most Recent: 78.063 kg I&O - Last 24 hours: Intake & Output 01/19/18 01/20/18 01/20/18 22:59 06:59 14:59 Intake Total 50 Output Total 300 Balance -250 Lab Results - Last 24 hrs: Laboratory Results - last 24 hr 01/19/18 01/19/18 01/19/18 Range/Units 14:02 14:02 14:02 WBC 10.07 (4.0-11.0) K/uL RBC 3.81 L (4.30-5.90) M/uL Hgb 12.0 (12.0-16.0) g/dL Hct 35.5 L (36.0-46.0) % MCV 93.2 (80.0-98.0) fL MCH 31.5 (27.0-32.0) pg MCHC 33.8 (31.0-37.0) g/dL RDW Std Deviation 41.6 (28.0-62.0) fl RDW Coeff of Jose 13 (11.0-15.0) % Plt Count 213 (150-400) K/uL MPV 10.20 (7.40-12.00) fL Neut % (Auto) 76.9 (48.0-80.0) % Lymph % (Auto) 14.4 L (16.0-40.0) % [place] % (Auto) 7.0 (0.0-15.0) % Eos % (Auto) 1.5 (0.0-7.0) % Baso % (Auto) 0.2 (0.0-1.5) % Neut # (Auto) 7.8 H (1.4-5.7) K/uL Lymph # (Auto) 1.5 (0.6-2.4) K/uL [place] # (Auto) 0.7 (0.0-0.8) K/uL Eos # (Auto) 0.2 (0.0-0.7) K/uL Baso # (Auto) 0.0 (0.0-0.1) K/uL Nucleated RBC % 0.0 /100WBC Nucleated RBCs # 0 K/uL Sodium 135 L (136-145) mmol/L Potassium 4.2 (3.5-5.1) mmol/L Chloride 99 (98-107) mmol/L Carbon Dioxide 27.1 (21.0-32.0) mmol/L BUN 19 H (7.0-18.0) mg/dL Creatinine 1.4 H (0.6-1.0) mg/dL Est Cr Clr Drug Dosing 44.10 mL/min Estimated GFR (MDRD) 38.2 ml/min Glucose 139 H (74-106) mg/dL Calcium 9.2 (8.5-10.1) mg/dL Total Bilirubin 0.6 (0.2-1.0) mg/dL AST 29 (15-37) IU/L ALT 50 (14-63) IU/L Alkaline Phosphatase 72 (46-116) U/L Troponin I < 0.050 (0.000-0.056) ng/mL B-Natriuretic Peptide 53 (<100) PG/ML Total Protein 7.8 (6.4-8.2) g/dL Albumin 3.0 L (3.4-5.0) g/dL Globulin 4.8 H (2.0-3.5) g/dL Albumin/Globulin Ratio 0.6 L (1.3-2.8) Urine Color Urine Appearance Urine pH (5.0-8.0) Ur Specific [place] (1.001-1.035) Urine Protein (NEGATIVE) mg/dL Urine Glucose (UA) (NEGATIVE) mg/dL Urine Ketones (NEGATIVE) mg/dL Urine Occult Blood (NEGATIVE) Urine Nitrite (NEGATIVE) Urine Bilirubin (NEGATIVE) Urine Urobilinogen (<2.0) EU/dL Ur Leukocyte Esterase (NEGATIVE) Urine RBC (0-2/HPF) Urine WBC (0-5/HPF) Ur Epithelial Cells (NONE-FEW) Urine Bacteria (NEGATIVE) 01/19/18 01/20/18 01/20/18 Range/Units 15:00 08:51 08:51 WBC 6.90 (4.0-11.0) K/uL RBC 3.43 L (4.30-5.90) M/uL Hgb 10.5 L (12.0-16.0) g/dL Hct 31.8 L (36.0-46.0) % MCV 92.7 (80.0-98.0) fL MCH 30.6 (27.0-32.0) pg MCHC 33.0 (31.0-37.0) g/dL RDW Std Deviation 41.5 (28.0-62.0) fl RDW Coeff of Jose 12 (11.0-15.0) % Plt Count 193 (150-400) K/uL MPV 10.50 (7.40-12.00) fL Neut % (Auto) 81.5 H (48.0-80.0) % Lymph % (Auto) 15.9 L (16.0-40.0) % [place] % (Auto) 2.6 (0.0-15.0) % Eos % (Auto) 0.0 (0.0-7.0) % Baso % (Auto) 0.0 (0.0-1.5) % Neut # (Auto) 5.6 (1.4-5.7) K/uL Lymph # (Auto) 1.1 (0.6-2.4) K/uL [place] # (Auto) 0.2 (0.0-0.8) K/uL Eos # (Auto) 0.0 (0.0-0.7) K/uL Baso # (Auto) 0.0 (0.0-0.1) K/uL Nucleated RBC % 0.0 /100WBC Nucleated RBCs # 0 K/uL Sodium 139 (136-145) mmol/L Potassium 4.3 (3.5-5.1) mmol/L Chloride 105 (98-107) mmol/L Carbon Dioxide 25.2 (21.0-32.0) mmol/L BUN 20 H (7.0-18.0) mg/dL Creatinine 1.2 H (0.6-1.0) mg/dL Est Cr Clr Drug Dosing 51.45 mL/min Estimated GFR (MDRD) 45.7 ml/min Glucose 241 H (74-106) mg/dL Calcium 9.2 (8.5-10.1) mg/dL Total Bilirubin (0.2-1.0) mg/dL AST (15-37) IU/L ALT (14-63) IU/L Alkaline Phosphatase (46-116) U/L Troponin I (0.000-0.056) ng/mL B-Natriuretic Peptide (<100) PG/ML Total Protein (6.4-8.2) g/dL Albumin (3.4-5.0) g/dL Globulin (2.0-3.5) g/dL Albumin/Globulin Ratio (1.3-2.8) Urine Color YELLOW Urine Appearance CLEAR Urine pH 6.0 (5.0-8.0) Ur Specific [place] <= 1.005 (1.001-1.035) Urine Protein TRACE (NEGATIVE) mg/dL Urine Glucose (UA) NEGATIVE (NEGATIVE) mg/dL Urine Ketones NEGATIVE (NEGATIVE) mg/dL Urine Occult Blood SMALL H (NEGATIVE) Urine Nitrite NEGATIVE (NEGATIVE) Urine Bilirubin NEGATIVE (NEGATIVE) Urine Urobilinogen 0.2 (<2.0) EU/dL Ur Leukocyte Esterase TRACE (NEGATIVE) Urine RBC 0-2 (0-2/HPF) Urine WBC 0-2 (0-5/HPF) Ur Epithelial Cells FEW (NONE-FEW) Urine Bacteria FEW (NEGATIVE) Med Orders - Current: Current Medications Discontinued Medications Acetaminophen (Tylenol) 650 mg PO Q4H PRN PRN Reason: Pain (Mild 1-3)/fever Acyclovir (Zovirax) 800 mg PO BID [facility] Last Admin: 01/20/18 08:37 Dose: 800 mg Albuterol/Ipratropium (Duoneb 3.0-0.5 Mg/3 Ml) 3 ml NEB ONETIME ONE Stop: 01/19/18 13:48 Last Admin: 01/19/18 13:57 Dose: 3 ml Albuterol/Ipratropium (Duoneb 3.0-0.5 Mg/3 Ml) 3 ml NEB Q4HRRT PRN PRN Reason: Shortness Of Breath/wheezing Enoxaparin Sodium (Lovenox) 40 mg SUBCUT Q24H [facility] Last Admin: 01/19/18 16:52 Dose: 40 mg Sodium Chloride (Normal Saline) 500 mls @ 999 mls/hr IV STAT [facility] Last Admin: 01/19/18 14:02 Dose: 999 mls/hr Sodium Chloride (Normal Saline) 1,000 mls @ 125 mls/hr IV STAT [facility] Last Admin: 01/20/18 06:53 Dose: 125 mls/hr Ceftriaxone Sodium 1 gm/ (Sodium Chloride) 50 mls @ 100 mls/hr IV Q24H [facility] Last Admin: 01/19/18 16:53 Dose: 100 mls/hr Iopamidol (Isovue-300 (61%)) 65 ml IVPUSH ONETIME ONE Stop: 01/20/18 10:44 Last Admin: 01/20/18 10:44 Dose: 65 ml Methylprednisolone Sodium Succinate (Solu-Medrol) 125 mg IVPUSH ONETIME ONE Stop: 01/19/18 13:48 Last Admin: 01/19/18 14:02 Dose: 125 mg Morphine Sulfate (Morphine) 2 mg IVPUSH Q2H PRN PRN Reason: Pain (severe 7-10) Stop: 01/20/18 15:37 Ondansetron HCl (Zofran) 4 mg IVPUSH Q4H PRN PRN Reason: Nausea/Vomiting
== END 2018-01-20 11:58 | disposition home or self-care (01) ==
LOC: MW.ED 13:36 → MW.MS 14:48
PROVIDERS: ADMIT Internal Medicine; ATTEND Internal Medicine
DX: R05 Cough (principal); E86.0 Dehydration; R93.8 Abnormal findings on diagnostic imaging of other specified body structures; N39.0 Urinary tract infection, site not specified; I10 Essential (primary) hypertension; E78.00 Pure hypercholesterolemia, unspecified; F32.9 Major depressive disorder, single episode, unspecified; F41.9 Anxiety disorder, unspecified; E03.9 Hypothyroidism, unspecified; Z85.6 Personal history of leukemia; Z87.891 Personal history of nicotine dependence; Z87.440 Personal history of urinary (tract) infections; Z79.899 Other long term (current) drug therapy; Z88.0 Allergy status to penicillin; Z88.1 Allergy status to other antibiotic agents
CPT/HCPCS: 36415; 71045; 71260; 80048; 80053; 81001; 83880; 84484; 85025; 87086; 93005; 94640; 96361; 96365; 96372; 96375; 99285; A9270; G0378; J0696; J1650; J2930; J7040; J7050; Q9967; 96374; 99283; J7620-GY

== ENCOUNTER 2019-01-21 15:45 | Emergency (ER) | payer SELFPAY ==
[2019-01-21] MEDS ORDERED: Lisinopril 5 MG Tab PO ONE (15:57)
[2019-01-21] MEDS ORDERED: Sodium Chloride 0.9% 2.5 ML Syringe FLUSH PRN (15:57)
[2019-01-21] MEDS ORDERED: Sodium Chloride 0.9% 10 ML Syringe FLUSH PRN (15:57)
--- NOTE | 2019-01-21 16:03 | EDM.PDOC ---
ED HPI GENERAL MEDICAL PROBLEM - General Chief Complaint: Cardiovascular Problem Stated Complaint: BLURRY VISION AND HIGH BP Time Seen by Provider: 01/21/19 15:51 Source of Information: Reports: Patient History Limitations: Reports: No Limitations - History of Present Illness INITIAL COMMENTS - FREE TEXT/NARRATIVE: History of present illness: []Patient has a history of leukemia and was treated with stem cell transplant 2016 arrived with complaint of 3 days of consistent elevation of blood pressure. Episodic pain in her head and occasional blurry vision. She denies any fevers, chills, nausea, vomiting or headache Review of systems: As per history of present illness and below otherwise all systems reviewed and negative. Past medical history: As per history of present illness and as reviewed below otherwise noncontributory. Surgical history: As per history of present illness and as reviewed below otherwise noncontributory. Social history: No reported history of drug or alcohol abuse. Family history: As per history of present illness and as reviewed below otherwise noncontributory. Physical exam: General: Well developed, well nourished in NAD HEENT: Atraumatic, normocephalic, pupils reactive, negative for conjunctival pallor or scleral icterus, mucous membranes moist, throat clear, neck supple, nontender, trachea midline. Lungs: Clear to auscultation, breath sounds equal bilaterally, chest nontender. Heart: S1S2, regular, negative for clicks, rubs, or JVD. Abdomen: NABS, Soft, nondistended, nontender. Negative for masses or hepatosplenomegaly. Negative for costovertebral tenderness. Pelvis: Stable nontender. Genitourinary: Deferred. Rectal: Deferred. Extremities: Atraumatic, negative for cords or calf pain. Neurovascular unremarkable. Neuro: Awake, alert, oriented. Cranial nerves II through XII unremarkable. Cerebellum unremarkable. Motor and sensory unremarkable throughout. Exam nonfocal. Skin:warm and dry Diagnostics: CT head, CBC, chemistry Therapeutics: None ED Course: Stable blood pressure improved once patient was in the ED without medication Impression: Medical screening exam Prescriptions: None Plan: , follow up with your primary care physician, return to ER if symptoms worsen or change. Definitive disposition and diagnosis as appropriate pending reevaluation and review of above. - Related Data Allergies Allergy/AdvReac Type Severity Reaction Status Date / Time levofloxacin [From Levaquin] Allergy Cannot Verified 01/21/19 15:49 Remember Penicillins Allergy Hives Verified 01/21/19 15:49 vancomycin Allergy Hives Verified 01/21/19 15:49 Home Meds: Home Meds DULoxetine [Cymbalta] 60 mg PO DAILY 02/24/16 [History] LORazepam [Ativan] 0.5 tab PO Q6HR 02/24/16 [History] Levothyroxine Sodium [Levo-T] 25 mcg PO DAILY 02/24/16 [History] Past Medical History HEENT History: Reports: Other (See Below) Other HEENT History: using eye glasses Cardiovascular History: Reports: High Cholesterol, Hypertension Other Cardiovascular History: HTN, high cholesterol in the past Respiratory History: Reports: None Gastrointestinal History: Reports: Colon Polyp, Diverticulosis Genitourinary History: Reports: UTI, Recurrent STAFF DEVELOPMENT MANAGER History: Reports: Other STAFF DEVELOPMENT MANAGER History: hysterectomy Musculoskeletal History: Reports: Fibromyalgia Other Musculoskeletal History: fibromyalgia prior to stem cell transplant Neurological History: Reports: None Psychiatric History: Reports: Anxiety, Depression Endocrine/Metabolic History: Reports: Hypothyroidism Hematologic History: Reports: Blood Transfusion(s), Other (See Below) Other Hematologic History: 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 Immunologic History: Reports: None Other Immunologic History: Stem cell transplant, currently in remission leukemia Oncologic (Cancer) History: Reports: Leukemia Other Oncologic History: hx stem cell transplant Jun, 2014 Dermatologic History: Reports: None - Infectious Disease History Infectious Disease History: Reports: Chicken Pox, Measles, Mumps - Past Surgical History Head Surgeries/Procedures: Reports: None GI Surgical History: Reports: Cholecystectomy, Colonoscopy Female Surgical History: Reports: Hysterectomy Social & Family History - Family History Family Medical History: Noncontributory HEENT: Reports: Other (See Below) Other HEENT Family History: cancer - Tobacco Use Smoking Status *Q: Never Smoker Second Hand Smoke Exposure: No - Caffeine Use Caffeine Use: Reports: Coffee - Recreational Drug Use Recreational Drug Use: No ED ROS GENERAL - Review of Systems Review Of Systems: See Below ED EXAM, GENERAL - Physical Exam Exam: See Below Course - Vital Signs Last Recorded V/S: Last Vital Signs Temp 96.6 F 01/21/19 15:51 Pulse 73 01/21/19 16:55 Resp 18 01/21/19 16:55 BP 152/96 H 01/21/19 16:55 Pulse Ox 98 01/21/19 16:55 - Orders/Labs/Meds Orders: Active Orders 24 hr Category Date Time Status EKG Documentation Completion [RC] STAT Care 01/21/19 15:55 Active Sodium Chloride 0.9% [Saline Flush] Med 01/21/19 15:57 Active 10 ml FLUSH ASDIRECTED PRN Sodium Chloride 0.9% [Saline Flush] Med 01/21/19 15:57 Active 2.5 ml FLUSH ASDIRECTED PRN Saline Lock Insert [OM.PC] Stat Oth 01/21/19 15:55 Ordered Medication Orders Sodium Chloride (Saline Flush) 10 ml FLUSH ASDIRECTED PRN PRN Reason: Keep Vein Open Sodium Chloride (Saline Flush) 2.5 ml FLUSH ASDIRECTED PRN PRN Reason: Keep Vein Open Labs: Laboratory Tests 01/21/19 01/21/19 Range/Units 16:08 16:08 WBC 4.76 (4.0-11.0) K/uL RBC 4.46 (4.30-5.90) M/uL Hgb 13.3 (12.0-16.0) g/dL Hct 40.4 (36.0-46.0) % MCV 90.6 (80.0-98.0) fL MCH 29.8 (27.0-32.0) pg MCHC 32.9 (31.0-37.0) g/dL RDW Std Deviation 44.6 (28.0-62.0) fl RDW Coeff of Jose 14 (11.0-15.0) % Plt Count 162 (150-400) K/uL MPV 10.50 (7.40-12.00) fL Neut % (Auto) 53.4 (48.0-80.0) % Lymph % (Auto) 37.2 (16.0-40.0) % Gosper % (Auto) 6.3 (0.0-15.0) % Eos % (Auto) 2.7 (0.0-7.0) % Baso % (Auto) 0.4 (0.0-1.5) % Neut # (Auto) 2.5 (1.4-5.7) K/uL Lymph # (Auto) 1.8 (0.6-2.4) K/uL Gosper # (Auto) 0.3 (0.0-0.8) K/uL Eos # (Auto) 0.1 (0.0-0.7) K/uL Baso # (Auto) 0.0 (0.0-0.1) K/uL Nucleated RBC % 0.0 /100WBC Nucleated RBCs # 0 K/uL Sodium 141 (136-145) mmol/L Potassium 3.9 (3.5-5.1) mmol/L Chloride 105 (98-107) mmol/L Carbon Dioxide 27.3 (21.0-32.0) mmol/L BUN 25 H (7.0-18.0) mg/dL Creatinine 1.2 H (0.6-1.0) mg/dL Est Cr Clr Drug Dosing 50.80 mL/min Estimated GFR (MDRD) 45.5 ml/min Glucose 120 H (74-106) mg/dL Calcium 9.5 (8.5-10.1) mg/dL Total Bilirubin 0.3 (0.2-1.0) mg/dL AST 14 L (15-37) IU/L ALT 26 (14-63) IU/L Alkaline Phosphatase 75 (46-116) U/L Total Protein 7.3 (6.4-8.2) g/dL Albumin 3.8 (3.4-5.0) g/dL Globulin 3.5 (2.6-4.0) g/dL Albumin/Globulin Ratio 1.1 (0.9-1.6) Meds: Medications Generic Name Dose Route Start Last Admin Trade Name Freq PRN Reason Stop Dose Admin Sodium Chloride 10 ml 01/21/19 15:57 Saline Flush FLUSH ASDIRECTED PRN Keep Vein Open Sodium Chloride 2.5 ml 01/21/19 15:57 Saline Flush FLUSH ASDIRECTED PRN Keep Vein Open Discontinued Medications Generic Name Dose Route Start Last Admin Trade Name Freq PRN Reason Stop Dose Admin Lisinopril 10 mg 01/21/19 16:08 01/21/19 16:23 Prinivil PO 01/21/19 16:09 Not Given ONETIME ONE Departure - Departure Time of Disposition: 17:24 Disposition: Home, Self-Care 01 Condition: Good Clinical Impression: Encounter for medical screening examination Instructions: Medical Screening Exam Referrals: PCP,Unknown [Primary Care Provider] - Forms: ED Department Discharge Additional Instructions: The following information is given to patients seen in the emergency department who are being discharged to home. This information is to outline your options for follow-up care. We provide all patients seen in our emergency department with a follow-up referral. The need for follow-up, as well as the timing and circumstances, are variable depending upon the specifics of your emergency department visit. If you don't have a primary care physician on staff, we will provide you with a referral. We always advise you to contact your personal physician following an emergency department visit to inform them of the circumstance of the visit and for follow-up with them and/or the need for any referrals to a consulting specialist. The emergency department will also refer you to a specialist when appropriate. This referral assures that you have the opportunity for follow-up care with a specialist. All of these measure are taken in an effort to provide you with optimal care, which includes your follow-up. Under all circumstances we always encourage you to contact your private physician who remains a resource for coordinating your care. When calling for follow-up care, please make the office aware that this follow-up is from your recent emergency room visit. If for any reason you are refused follow-up, please contact the [facility] Emergency Department at and asked to speak to the emergency department charge nurse. [facility] [address] [place] [id number] - My Orders Last 24 Hours: My Active Orders 01/21/19 15:55 EKG Documentation Completion [RC] STAT Saline Lock Insert [OM.PC] Stat 01/21/19 15:57 Sodium Chloride 0.9% [Saline Flush] 10 ml FLUSH ASDIRECTED PRN Sodium Chloride 0.9% [Saline Flush] 2.5 ml FLUSH ASDIRECTED PRN - Assessment/Plan Last 24 Hours: My Active Orders 01/21/19 15:55 EKG Documentation Completion [RC] STAT Saline Lock Insert [OM.PC] Stat 01/21/19 15:57 Sodium Chloride 0.9% [Saline Flush] 10 ml FLUSH ASDIRECTED PRN Sodium Chloride 0.9% [Saline Flush] 2.5 ml FLUSH ASDIRECTED PRN
[2019-01-21] MEDS ORDERED: Lisinopril 10 MG Tab PO ONE (16:08)
--- NOTE | 2019-01-21 16:48 | CT ---
INDICATION: Blurry vision and hypertension TECHNIQUE: CT head without contrast. COMPARISON: None FINDINGS: CSF spaces: Within normal limits for age. Brain parenchyma: The tenorio-white differentiation is normal. No sign of mass, hemorrhage, or midline shift. Skull base and calvarium: The visualized paranasal sinuses and mastoid air cells demonstrate no acute or significant findings. The visualized orbits are grossly unremarkable. No skull fractures. IMPRESSION: Unremarkable noncontrast head CT. Dictated by Get Sampson MD @ 01/21/2019 4:46:47 PM Please note that all CT scans at this facility use dose modulation, iterative reconstruction, and/or weight-based dosing when appropriate to reduce radiation dose to as low as reasonably achievable. Dictated by: Get Sampson MD @ 01/21/2019 16:46:54 (Electronically Signed)
[2019-01-21 17:38] VITALS: BP 156/97
== END 2019-01-21 17:37 | disposition home or self-care (01) ==
LOC: MW.ED 15:45
DX: Z13.9 Encounter for screening, unspecified (principal); R51 Headache; I10 Essential (primary) hypertension; F41.9 Anxiety disorder, unspecified; F32.9 Major depressive disorder, single episode, unspecified; E03.9 Hypothyroidism, unspecified; Z88.0 Allergy status to penicillin; Z88.1 Allergy status to other antibiotic agents; Z79.890 Hormone replacement therapy; Z79.899 Other long term (current) drug therapy
CPT/HCPCS: 70450; 70450-26; 80053; 85025; 93005; 99283; 99284-25

== ENCOUNTER 2022-05-05 13:47 | Emergency (ER) | payer MEDICARE, BC ==
[2022-05-05] MEDS ORDERED: Sodium Chloride 0.9% 10 ML Syringe FLUSH PRN (14:20)
[2022-05-05] MEDS ORDERED: Sodium Chloride 0.9% 2.5 ML Syringe FLUSH PRN (14:20)
[2022-05-05 15:58] LABS: CARBON DIOXIDE,CO2 28.5 mmol/L (21.0-32.0); POTASSIUM,K 4.2 mmol/L (3.5-5.1)
[2022-05-05 16:45] VITALS: BP 171/94; PULSE 65
== END 2022-05-05 16:32 | disposition home or self-care (01) ==
LOC: MW.ED 13:47
DX: I10 Essential (primary) hypertension (principal); E03.9 Hypothyroidism, unspecified; Z88.1 Allergy status to other antibiotic agents; Z88.0 Allergy status to penicillin; Z79.899 Other long term (current) drug therapy
CPT/HCPCS: 36415; 70450; 70450-26; 80053; 84484; 85025; 93005; 99284